=== PATIENT | female | born 1940 | race Caucasian/White ===

== ENCOUNTER 2016-11-28 12:46 | Inpatient (IN) | payer OTHER ==
[2016-11-28 13:09] VITALS: BMI 23.9
--- NOTE | 2016-11-28 13:23 | PDOC ---
History of Present Illness - General Chief Complaint: Injury Stated Complaint: ANKLE INJURY Time Seen by Provider: 11/28/16 13:22 History Source: Patient Exam Limitations: No Limitations - History of Present Illness Initial Comments: 11/28/16 13:35 76y F hx of htn, on asa presents s/p mechanical slip and fall. The pt was walking down and slipped on ice, she hit her head but w/o and LOC and denies any headache, vision changes, numbness/tingling weakness of the extermities, neck pain, back pain. Pt complaining of pain to the L ankle. denies any tingling Past History - Past Medical History Allergies/Adverse Reactions: Allergies Allergy/AdvReac Type Severity Reaction Status Date / Time No Known Allergies Allergy Verified 11/28/16 13:07 Home Medications: Ambulatory Orders Aspirin [ASA -] 81 mg PO DAILY 11/28/16 HTN: Yes - Immunization History Immunization Up to Date: Yes - Psycho/Social/Smoking Cessation Hx Suicidal Ideation: No Smoking History: Current every day smoker Number of Cigarettes Smoked Daily: 20 Information on smoking cessation initiated: No Hx Alcohol Use: No Drug/Substance Use Hx: No Review of Systems - Review of Systems Able to Perform ROS?: Yes Comments:: 11/28/16 13:39 Constitutional - no reported Fever, Chills, weakness, HEENT: no reported vision changes, sore throat Respiratory: no reported cough, sob, hemoptysis Cardiac: no reported chest pain, palpitations, light headedness, leg swelling Abd/GI: no reported abd pain, nausea, vomiting, blood per rectum, melena, diarrhea : no reported dysuria, frequency, discharge Musculskelatal - +ankle pain no reported back pain, joint swelling skin - no reported bruising, erythema, rash neurological: no reported headache, numbness, focal weakness, tingling, ataxia, weakness hematologic: no reported anemia, easy bruising, easy bleeding *Physical Exam - Vital Signs Last Vital Signs Temp Pulse Resp BP Pulse Ox 98.7 F 76 16 141/71 96 11/28/16 13:05 11/28/16 13:05 11/28/16 13:05 11/28/16 13:05 11/28/16 13:05 - Physical Exam Comments: 11/28/16 13:39 GENERAL: The patient is awake, alert, and fully oriented, Nontoxic - in no acute distress. HEAD: Normocephalic, atraumatic. EYES: extraocular movements intact, sclera anicteric, conjunctiva clear. ENT: Normal voice, Moist mucous membranes. NECK: Normal range of motion, supple LUNGS: Breath sounds equal, clear to auscultation bilaterally. No wheezes, no rhonchi, no rales. HEART: Regular rate and rhythm, normal S1 and S2 without murmur, rub or gallop. ABDOMEN: Soft, nontender, normoactive bowel sounds. No guarding, no rebound. . No CVA tenderness EXTREMITIES: Normal range of motion, no edema. No clubbing or cyanosis. No cords, erythema, or tenderness. NEUROLOGICAL: No facial assymetry, Normal speech, PSYCH: Normal mood, normal affect. SKIN: Warm, Dry, normal turgor, Back: No midline tenderness to the cervical, thoracic or lumbar spine Musculoskelatal: FROM of b/l shoulders, elbows, wrist. FROM of hips, knees,- No signs of ecchymosis, erythema, or crepitus noted on palpation extremities, chest wall, clavicals, ribs, back. +tenderness of medial aspect of L ankle, + external rotation of L ankle iwht significant defomrity/ecchymosis Procedures - Consent Consent obtained: Verbal - Splinting Splint Location: Left: Ankle Pre-Proc Neuro Vasc Exam: normal Hand-Made Type: orthoglass Splint Type: Yes: Sugar Tong (u/stirrup splint) Post-Proc Neuro Vasc Exam: normal Jensen Bandage: yes, 4" Good repositioning: Yes Heart Score/ECG Review - ECG Impressions Comment:: 11/28/16 20:31 Twelve-lead EKG was performed and reviewed by me. There is normal sinus rhythm with a normal rate. Rate of 68 The axis is normal. The intervals are normal. Abnormal R wave progression Q waves in the inferior leads No acute ST changes suggestive of ischemia ED Treatment Course - LABORATORY CBC & Chemistry Diagram: 11/28/16 14:41 11/28/16 14:41 - RADIOLOGY Radiology Studies Ordered: Category Date Time Status ANKLE & FOOT-LEFT* [RAD] Stat Radiology 11/28/16 13:23 Ordered Medical Decision Making - Medical Decision Making 11/28/16 15:25 76y presents s/p mechanical fall presents with ankle pain, +head injury without any LOC pt with deformend ankle without too much swelling, n/v intact +trimal fx on xray case dw dr. tom pt placed in a splint will consider exfix vs. reduction will place in observation status. 11/28/16 17:46 plan for OR at 10:[address] in observation status PMD dr. wilson - will notify dr. Belle 11/28/16 20:[address] belle agree with observation status stable for med surg Case discussed in detail with admitting physician including history, physical exam and ancillary studies. Admitting physician has assumed care for the patient, will follow all pending diagnostics and will complete the evaluation and treatment. 11/28/16 20:33 *DC/Admit/Observation/Transfer Diagnosis at time of Disposition: Fracture of distal end of tibia with fibula Qualifiers: Encounter type: initial encounter Fracture type: closed Laterality: left Qualified Code(s): S82.302A - Unspecified fracture of lower end of left tibia, initial encounter for closed fracture - Discharge Dispostion Condition at time of disposition: Guarded Admit: Yes
[2016-11-28] MEDS ORDERED: morphine CARPU-JECT 2 MG/1 ML DISP.SYRIN IVPUSH ONE (13:36)
[2016-11-28] MEDS ORDERED: morphine CARPU-JECT 2 MG/1 ML DISP.SYRIN ONE (14:32)
[2016-11-28 14:48] LABS: BASOPHIL 1.3 % (0-2.0); EOSINOPHIL 1.6 % (0-4.5); MCH 30.2 pg (25.7-33.7); MCHC 33.9 g/dl (32.0-36.0); MEAN CELL VOLUME 89.2 fl (80-96); MEAN PLT VOLUME 9.4 fl (7.5-11.1); NEUTROPHILS 68.8 % (42.8-82.8); PLATELET COUNT 172 K/MM3 (134-434); WHITE BLOOD COUNT 8.7 K/mm3 (4.0-10.0)
[2016-11-28 15:06] LABS: INR 0.99 (0.82-1.09); PROTHROMBIN TIME (PATIENT) 10.9 SEC (9.98-11.88)
[2016-11-28 15:11] LABS: ALBUMIN 3.5 g/dl (3.4-5.0); ALK PHOS 73 U/L (45-117); ANION GAP 10 (8-16); BILIRUBIN,TOTAL 0.6 mg/dL (0.2-1.0); CALCIUM 9.1 mg/dL (8.5-10.1); CO2 27 mmol/L (21-32); CREATININE 0.9 mg/dL (0.55-1.02); GLUCOSE,RANDOM 107 mg/dL (74-106); SGOT/AST 8 U/L (15-37); SGPT/ALT 15 U/L (12-78); TOT PROT 6.4 g/dl (6.4-8.2)
[2016-11-28] MEDS ORDERED: ONDANSETRON 4 MG/2 ML VIAL ONE (19:11)
[2016-11-28] MEDS ORDERED: ceFAZolin SODIUM 1 GM VIAL IVPB ONE (19:20)
[2016-11-28] MEDS ORDERED: ACETAMINOPHEN 325 MG TABLET (FP) PO PRN (19:51)
[2016-11-28] MEDS ORDERED: ACETAMINOPHEN WITH CODEINE 300MG/30MG TABLET PO PRN (19:52)
[2016-11-28] MEDS ORDERED: ceFAZolin SODIUM 1 GM VIAL ONE (19:59)
--- NOTE | 2016-11-28 19:59 | OP ---
Operative Note - Note: Operative Date: 11/28/16 Pre-Operative Diagnosis: LEFT DISTAL TIBIA AND FIBULA FX Operation: EXTERNAL FIXATION Surgeon: Alfredo Hernandez I Armament Aircraft Mechanic: Chay Carr Anesthesia: Spinal
[2016-11-28] MEDS ORDERED: ONDANSETRON 4 MG/2 ML VIAL IVPUSH PRN (20:11)
--- NOTE | 2016-11-28 21:17 | CONS ---
DATE OF CONSULTATION: 11/28/2016 CHIEF COMPLAINT: Left ankle injury. HISTORY OF PRESENT ILLNESS: The patient is a 76-year-old female who complains of a mechanical slip and fall. She was walking down stairs and slipped on the ice. She hit her head, but did not have loss of consciousness. She denied any head conditions. She complained of left ankle pain and I was consulted to evaluate the left ankle. Patient denies numbness, tingling, or other complaints. PAST MEDICAL HISTORY: Hypertension. MEDICATIONS: Aspirin. ALLERGIES: No known drug allergies. SOCIAL HISTORY: She has a positive smoking history, but no alcohol abuse. REVIEW OF SYSTEMS: Negative for all systems, other than ankle pain. PHYSICAL EXAMINATION: General: Patient is alert and oriented x3 and in no acute distress. She is not ambulatory at the time due to her injury. Vital signs: Stable. She is afebrile. HEENT: Head is atraumatic. Neck: Nontender. Spine: Nontender. Lungs: Clear to auscultation with normal symmetrical excursion. Heart: Regular rate and rhythm. Abdomen: Soft and nontender. Extremities: The right lower extremity and bilateral upper extremities are atraumatic. The left lower extremity has mild to moderate swelling and mild deformity to the ankle. She has intact sensation, 1+ pulse. Brisk capillary refill. Tenderness throughout the ankle. IMAGING: AP, lateral, and oblique of the left ankle shows a displaced comminuted fracture dislocation of the ankle. IMPRESSION: Left ankle displaced comminuted intraarticular fracture. PLAN: I have had a long discussion with the patient regarding the findings and treatment options. We have decided to proceed with external fixation for now and possibility of open reduction internal fixation in the future. Risks, benefits, alternatives were discussed with the patient at length. She understands that this is a very bad fracture and that even with optimal surgical fixation, she is unlikely to have a normal ankle. Potential risks including but not limited to infection, reflex complex regional pain syndrome, arthritis, failure of the fracture to heal in a proper position or to heal at all were all discussed, even the potential risk of morbidity and mortality were discussed. She desired to proceed. Proper informed consent was obtained. MIKIE MILLER M.D. [id number]
[2016-11-28] MEDS: DOCUSATE SODIUM 100 MG CAPSULE (FP) PO SCH (22:44)
[2016-11-28] MEDS: oxyCODONE HCL 5 MG TABLET PO PRN (22:44)
[2016-11-28] MEDS: CALCIUM 500MG/VIT-D 200 UNITS COMBO TABLET (FP) PO SCH (22:44)
[2016-11-28] MEDS: LACTATED RINGERS SOLUTION 1,000 ML IV SCH (23:18)
[2016-11-29] MEDS: CEFAZOLIN (PRE-DOCKED) 50 ML IVPB SCH ×3 (01:57→17:34)
[2016-11-29] MEDS: oxyCODONE HCL 5 MG TABLET PO PRN ×4 (06:00→21:33)
[2016-11-29] MEDS: DOCUSATE SODIUM 100 MG CAPSULE (FP) PO SCH ×3 (06:01→21:28)
[2016-11-29] MEDS: LACTATED RINGERS SOLUTION 1,000 ML IV SCH ×2 (07:45→21:26)
--- NOTE | 2016-11-29 09:07 | PN ---
Progress Note (short form) - Note Progress Note: Post op day#1.S/P ORIF of left ankle with external fixator under spinal anesthesia uneventful.Patient stable.No any anesthesia related problem.Patient dc from the anesthesia care.
[2016-11-29] MEDS: ASPIRIN 81 MG CHEWABLE TABLETS PO SCH (09:27)
[2016-11-29] MEDS: HEPARIN NA (PORCINE) 5,000 UNITS/ML 1ML VIAL SQ SCH ×2 (09:27→21:26)
[2016-11-29] MEDS: CALCIUM 500MG/VIT-D 200 UNITS COMBO TABLET (FP) PO SCH ×2 (09:27→21:26)
[2016-11-29] MEDS ORDERED: ASPIRIN 325 MG ENTERIC COATED TABLET (FP) PO SCH ×2 (10:00→22:00)
--- NOTE | 2016-11-29 12:28 | EKG ---
Test Reason : Blood Pressure : / mmHG Vent. Rate : 068 BPM Atrial Rate : 068 BPM P-R Int : 150 ms QRS Dur : 090 ms QT Int : 414 ms P-R-T Axes : 072 032 057 degrees QTc Int : 440 ms NORMAL SINUS RHYTHM POSSIBLE INFERIOR INFARCT , AGE UNDETERMINED ANTERIOR INFARCT , AGE UNDETERMINED ABNORMAL ECG WHEN COMPARED WITH ECG OF 22-MAY-1998 15:00, ANTERIOR INFARCT IS NOW PRESENT BORDERLINE CRITERIA FOR INFERIOR INFARCT ARE NOW PRESENT Confirmed by EDOUARD GATICA MD ([id number]) on 11/29/2016 12:28:29 PM Referred By: Confirmed By:EDOUARD GATICA MD
[2016-11-29] MEDS: LOSARTAN POTASSIUM 50 MG TABLET (FP) PO SCH (13:31)
[2016-11-29] MEDS: DULoxetine HCL 30 MG CAPSULE.DR (FP) PO SCH ×2 (13:33→21:26)
--- NOTE | 2016-11-29 14:47 | PN ---
Progress Note, Physician History of Present Illness: She feels well. Her pain is well controlled. No new complaints. - Current Medication List Current Medications: Active Medications Acetaminophen (Tylenol -) 650 mg PO Q6H PRN PRN Reason: PAIN Acetaminophen/Codeine Phosphate (Tylenol # 3 -) 1 tab PO Q4H PRN PRN Reason: FEVER OR PAIN Aspirin (Asa -) 81 mg PO DAILY [facility] Last Admin: 11/29/16 09:27 Dose: 81 mg Calcium Carbonate/Cholecalciferol (Os-Ronni 500+D -) 1 tab PO BID [facility] Last Admin: 11/29/16 09:27 Dose: 1 tab Docusate Sodium (Colace -) 100 mg PO TID [facility] Last Admin: 11/29/16 13:33 Dose: Not Given Duloxetine HCl (Cymbalta -) 30 mg PO BID [facility] Last Admin: 11/29/16 13:33 Dose: 30 mg Heparin Sodium (Porcine) (Heparin -) 5,000 unit SQ BID [facility] Last Admin: 11/29/16 09:27 Dose: 5,000 unit Cefazolin Sodium (Ancef 1gm Ivpb (Pre-Docked)) 50 mls @ 100 mls/hr IVPB Q8H-IV [facility] Stop: 11/30/16 00:59 Last Admin: 11/29/16 09:27 Dose: 100 mls/hr Lactated Ringer's (Lactated Ringers Solution) 1,000 mls @ 125 mls/hr IV ASDIR [facility] Last Admin: 11/29/16 07:45 Dose: 125 mls/hr Losartan Potassium (Cozaar -) 100 mg PO DAILY [facility] Last Admin: 11/29/16 13:31 Dose: 100 mg Oxycodone HCl (Roxicodone -) 5 mg PO Q4H PRN PRN Reason: PAIN Last Admin: 11/29/16 11:01 Dose: 5 mg - Objective Vital Signs: Vital Signs Temperature 98.8 F 11/29/16 07:54 Pulse Rate 96 H 11/29/16 07:54 Respiratory Rate 20 11/29/16 07:54 Blood Pressure 160/82 11/29/16 07:54 O2 Sat by Pulse Oximetry (%) 97 11/29/16 09:00 Constitutional: Yes: Well Nourished, No Distress HENT: Yes: Atraumatic, Normocephalic Extremities: Yes: Other (LLE: Exfix in place. Dressing CDI. Calf nontender. NVID. Compartments soft.) Labs: INR, PTT INR 0.99 (0.82-1.09) 11/28/16 14:41 Assessment/Plan #1 POD #1 s/p Left ankle Closed reduction and External Fixation. -Elevate LLE -NWB LLE -F/u with Dr. Pritchard in approx 1 week -Pain control -Discharge planning
--- NOTE | 2016-11-29 16:06 | HP ---
Admitting History and Physical - Past Medical History ...: No - Smoking History Smoking history: Current every day smoker Have you smoked in the past 12 months: Yes Aproximately how many cigarettes per day: 20 - Alcohol/Substance Use Hx Alcohol Use: No Home Medications - Allergies Allergies/Adverse Reactions: Allergies Allergy/AdvReac Type Severity Reaction Status Date / Time No Known Allergies Allergy Verified 11/28/16 13:07 - Home Medications Home Medications: Ambulatory Orders Aspirin [ASA -] 81 mg PO DAILY 11/28/16 Physical Examination Vital Signs: Vital Signs Temperature 97.8 F 11/29/16 15:39 Pulse Rate 89 11/29/16 15:39 Respiratory Rate 18 11/29/16 15:39 Blood Pressure 151/64 11/29/16 15:39 O2 Sat by Pulse Oximetry (%) 97 11/29/16 09:00
--- NOTE | 2016-11-29 18:44 | OP ---
OPERATIVE NOTE DATE OF OPERATION: 11/28/2016 OPERATIVE PROCEDURE: Closed reduction and external fixation of left comminuted intraarticular displaced distal tibia and fibula fracture. PREOPERATIVE DIAGNOSIS: Left comminuted intraarticular displaced ankle fracture. POSTOPERATIVE DIAGNOSIS: Left comminuted intraarticular displaced ankle fracture. SURGEON: Mikie Hernandez MD SNOW REMOVER: KALE Gonzalez ANESTHESIA: Spinal, COMPLICAITONS: None. ESTIMATED BLOOD LOSS: Minimal. INDICATION FOR PROCEDURE: The patient is a 76-year-old female with the above finding indicated for operative treatment. Risks, benefits and alternatives were discussed with the patient at length. Proper informed consent was obtained. PROCEDURE: After proper identification of the patient and the correct operative site, the patient was brought to the operating room and placed supine with all prominences well padded. Intravenous antibiotic was given. A time-out procedure was performed. Spinal anesthesia had been given and was adequate for procedure. The left lower extremity was prepped and draped in the usual sterile fashion. Using live fluoroscopy, the proper position and fractional fixation were visualized. Two small incisions were made over the proximal aspect of the tibia. Through this, a Ornelas external fixator was assembled. This was done with two pins placed proximally in the anteromedial position in a bicortical fashion. A third pin was placed through the calcaneus. All pins were placed with skin incision and then blunt dissection down to the bone. Care was taken to protect neurological and tendinous structures. Once the pins were placed, the external fixator frame was built around this, and then the fractures were reduced in a satisfactory position, and the frame was tightened. Final x-rays were taken and confirmed near-anatomic reduction with excellent alignment of the plafond. Sterile dressings were applied to all pin sites. The patient was brought to the recovery room in stable condition. She tolerated the procedure well. The plan will be to follow the patient with x-rays, check on her skin condition and determine at a later date whether internal fixation will be necessary. Chay Carr, the admin assistant, was integral throughout this procedure and the procedure could not have been performed without a skilled operative admin assistant. MIKIE HERNANDEZ M.D. [id number]
[2016-11-30] MEDS: DOCUSATE SODIUM 100 MG CAPSULE (FP) PO SCH ×3 (05:12→21:12)
[2016-11-30] MEDS: oxyCODONE HCL 5 MG TABLET PO PRN ×2 (05:28→21:13)
[2016-11-30 07:48] LABS: BASOPHIL 0.8 % (0-2.0); EOSINOPHIL 0.3 % (0-4.5); MCH 30.5 pg (25.7-33.7); MCHC 34.8 g/dl (32.0-36.0); MEAN CELL VOLUME 87.6 fl (80-96); MEAN PLT VOLUME 9.4 fl (7.5-11.1); NEUTROPHILS 72.6 % (42.8-82.8); PLATELET COUNT 129 K/MM3 (134-434); RDW 13.5 % (11.6-15.6); WHITE BLOOD COUNT 9.8 K/mm3 (4.0-10.0)
[2016-11-30 08:13] LABS: ALBUMIN 2.7 g/dl (3.4-5.0); ANION GAP 11 (8-16); CALCIUM 8.7 mg/dL (8.5-10.1); CO2 26 mmol/L (21-32); GLUCOSE,RANDOM 104 mg/dL (74-106)
[2016-11-30 08:16] LABS: ALK PHOS 59 U/L (45-117); BILIRUBIN,TOTAL 1.4 mg/dL (0.2-1.0); CREATININE 0.6 mg/dL (0.55-1.02); SGOT/AST 10 U/L (15-37); SGPT/ALT 10 U/L (12-78); TOT PROT 5.2 g/dl (6.4-8.2)
[2016-11-30] MEDS: HEPARIN NA (PORCINE) 5,000 UNITS/ML 1ML VIAL SQ SCH ×2 (09:45→21:13)
[2016-11-30] MEDS: CALCIUM 500MG/VIT-D 200 UNITS COMBO TABLET (FP) PO SCH ×2 (09:45→21:12)
[2016-11-30] MEDS: LOSARTAN POTASSIUM 50 MG TABLET (FP) PO SCH (09:45)
[2016-11-30] MEDS: DULoxetine HCL 30 MG CAPSULE.DR (FP) PO SCH ×2 (09:46→21:12)
[2016-11-30] MEDS: ASPIRIN 81 MG CHEWABLE TABLETS PO SCH (09:46)
[2016-11-30] MEDS ORDERED: POTASSIUM CHLORIDE TABS 20 MEQ TABLET.ER (FP) PO ONE (13:30)
--- NOTE | 2016-11-30 16:55 | PN ---
Progress Note (short form) - Note Progress Note: Subjective: Patient feels well. Minimal pain. Comfortable. Having some numbness to the plantar aspect of the foot. Denies CP, SOB, N/V/D, abdominal pain, calf pain, fevers/chills. Objective: Vital Signs Temperature 99.0 F 11/30/16 14:12 Pulse Rate 89 11/30/16 14:12 Respiratory Rate 18 11/30/16 10:00 Blood Pressure 156/68 11/30/16 14:12 O2 Sat by Pulse Oximetry (%) 95 11/30/16 09:00 VSS. Afebrile. NAD. L ankle exam: Ex-fix in place No erythema/discharge noted at insertion sites. Dressings C/D Full ROM of the toes NVID. CBC, BMP 11/30/16 06:30 11/30/16 06:30 A/P: POD #2 s/p Left ankle Closed reduction and External Fixation -Elevate LLE -NWB LLE -Pain control -Order CT of the ankle -Will f/u on results
--- NOTE | 2016-11-30 19:36 | PN ---
Progress Note, Physician - Current Medication List Current Medications: Active Medications Acetaminophen (Tylenol -) 650 mg PO Q6H PRN PRN Reason: PAIN Acetaminophen/Codeine Phosphate (Tylenol # 3 -) 1 tab PO Q4H PRN PRN Reason: FEVER OR PAIN Aspirin (Asa -) 81 mg PO DAILY [facility] Last Admin: 11/30/16 09:46 Dose: 81 mg Calcium Carbonate/Cholecalciferol (Os-Ronni 500+D -) 1 tab PO BID [facility] Last Admin: 11/30/16 09:45 Dose: 1 tab Docusate Sodium (Colace -) 100 mg PO TID [facility] Last Admin: 11/30/16 14:21 Dose: 100 mg Duloxetine HCl (Cymbalta -) 30 mg PO BID [facility] Last Admin: 11/30/16 09:46 Dose: 30 mg Heparin Sodium (Porcine) (Heparin -) 5,000 unit SQ BID [facility] Last Admin: 11/30/16 09:45 Dose: 5,000 unit Losartan Potassium (Cozaar -) 100 mg PO DAILY [facility] Last Admin: 11/30/16 09:45 Dose: 100 mg Oxycodone HCl (Roxicodone -) 5 mg PO Q4H PRN PRN Reason: PAIN Last Admin: 11/30/16 05:28 Dose: 5 mg - Objective Vital Signs: Vital Signs Temperature 99.0 F 11/30/16 14:12 Pulse Rate 89 11/30/16 14:12 Respiratory Rate 18 11/30/16 10:00 Blood Pressure 156/68 11/30/16 14:12 O2 Sat by Pulse Oximetry (%) 95 11/30/16 09:00 Labs: CBC, BMP 11/30/16 06:30 11/30/16 06:30 INR, PTT INR 0.99 (0.82-1.09) 11/28/16 14:41
[2016-12-01] MEDS: DOCUSATE SODIUM 100 MG CAPSULE (FP) PO SCH ×3 (05:50→21:58)
[2016-12-01] MEDS ORDERED: ALBUTEROL SO4 2.5/IPRATROPIUM 0.5 INH SOL 3 ML VIAL.NEB. NEB ONE (09:52)
[2016-12-01] MEDS: DULoxetine HCL 30 MG CAPSULE.DR (FP) PO SCH ×2 (09:53→21:57)
[2016-12-01] MEDS: ASPIRIN 81 MG CHEWABLE TABLETS PO SCH (09:53)
[2016-12-01] MEDS: CALCIUM 500MG/VIT-D 200 UNITS COMBO TABLET (FP) PO SCH ×2 (09:53→21:58)
[2016-12-01] MEDS: HEPARIN NA (PORCINE) 5,000 UNITS/ML 1ML VIAL SQ SCH ×2 (09:54→21:55)
[2016-12-01] MEDS: LOSARTAN POTASSIUM 50 MG TABLET (FP) PO SCH (09:54)
[2016-12-01] MEDS ORDERED: ALBUTEROL SO4 2.5/IPRATROPIUM 0.5 INH SOL 3 ML VIAL.NEB. NEB PRN ×2 (10:00→11:24)
--- NOTE | 2016-12-01 11:17 | PN ---
Progress Note (short form) - Note Progress Note: PULMONARY CONSULTATION DICTATED 12/01/16 IMP DYSPNEA LIKELY COPD,CANNOT EXCLUDE PULMONARY EMBOLISM,POST-OP ATELECTASIS S/P ANKLE FX S/P CLOSED REDUCTION EXTERNAL FIXATION LEFT TIB-FIB HTN PLAN O2 INHALED BRONCHODILATORS CHEST CTA INCENTIVE SPIROMETRY DVT PROPHYLAXIS DR BROWN Problem List - Problems (1) Fracture of distal end of tibia with fibula Code(s): S82.309A - UNSP FRACTURE OF LOWER END OF UNSP TIBIA, INIT FOR CLOS FX S82.839A - OTH FRACTURE OF UPPER AND LOWER END OF UNSP FIBULA, INIT Qualifiers : Encounter type: initial encounter Fracture type: closed Laterality : left Qualified Code(s): S82.302A - Unspecified fracture of lower end of left tibia, initial encounter for closed fracture (2) Dyspnea and respiratory abnormalities Code(s): R06.00 - DYSPNEA, UNSPECIFIED R06.89 - OTHER ABNORMALITIES OF BREATHING (3) Status post closed reduction with internal fixation Code(s): Z98.89 - OTHER SPECIFIED POSTPROCEDURAL STATES * DO NOT USE *
--- NOTE | 2016-12-01 13:11 | HOSP ---
Physical Examination Vital Signs: Vital Signs Temperature 97.8 F 12/01/16 08:00 Pulse Rate 81 12/01/16 08:00 Respiratory Rate 20 12/01/16 08:00 Blood Pressure 162/82 12/01/16 08:00 O2 Sat by Pulse Oximetry (%) 97 11/30/16 20:37 Labs: CBC, BMP 11/30/16 06:30 11/30/16 06:30 Hospitalist Encounter Assessment: Called to evaluate patient after IV infiltrated in CTA. The patient denies any pain. On exam, she has a 3cm x 3cm area of soft swelling without erythema or discoloration. The patient did receive a full contrast load and the infiltration is likely secondary to saline alone. Plan: -Warm compress -Elevation -Monitor Please re-call if needed. [phone]
--- NOTE | 2016-12-01 14:26 | PN ---
Progress Note, Physician History of Present Illness: Feels well. pain minimal. no new complaints. - Current Medication List Current Medications: Active Medications Acetaminophen (Tylenol -) 650 mg PO Q6H PRN PRN Reason: PAIN Acetaminophen/Codeine Phosphate (Tylenol # 3 -) 1 tab PO Q4H PRN PRN Reason: FEVER OR PAIN Albuterol/Ipratropium (Duoneb -) 1 amp NEB Q4H PRN PRN Reason: SHORTNESS OF BREATH Last Admin: 12/01/16 10:27 Dose: 1 amp Aspirin (Asa -) 81 mg PO DAILY [facility] Last Admin: 12/01/16 09:53 Dose: 81 mg Calcium Carbonate/Cholecalciferol (Os-Ronni 500+D -) 1 tab PO BID [facility] Last Admin: 12/01/16 09:53 Dose: 1 tab Docusate Sodium (Colace -) 100 mg PO TID [facility] Last Admin: 12/01/16 13:28 Dose: 100 mg Duloxetine HCl (Cymbalta -) 30 mg PO BID [facility] Last Admin: 12/01/16 09:53 Dose: 30 mg Heparin Sodium (Porcine) (Heparin -) 5,000 unit SQ BID [facility] Last Admin: 12/01/16 09:54 Dose: 5,000 unit Losartan Potassium (Cozaar -) 100 mg PO DAILY [facility] Last Admin: 12/01/16 09:54 Dose: 100 mg Oxycodone HCl (Roxicodone -) 5 mg PO Q4H PRN PRN Reason: PAIN Last Admin: 11/30/16 21:13 Dose: 5 mg - Objective Vital Signs: Vital Signs Temperature 97.8 F 12/01/16 08:00 Pulse Rate 84 12/01/16 10:24 Respiratory Rate 20 12/01/16 08:00 Blood Pressure 162/82 12/01/16 08:00 O2 Sat by Pulse Oximetry (%) 91 L 12/01/16 10:24 Constitutional: Yes: Well Nourished, No Distress HENT: Yes: Atraumatic, Normocephalic Extremities: Yes: Other (Dressing saturated on medial side. Dressing changed. No sign of infection. No calf tenderness. NVID.) Labs: CBC, BMP 11/30/16 06:30 11/30/16 06:30 INR, PTT INR 0.99 (0.82-1.09) 11/28/16 14:41 <Chay Carr W - Last Filed: 12/01/16 14:24> - Current Medication List Current Medications: Active Medications Acetaminophen (Tylenol -) 650 mg PO Q6H PRN PRN Reason: PAIN Albuterol/Ipratropium (Duoneb -) 1 amp NEB Q4H PRN PRN Reason: SHORTNESS OF BREATH Last Admin: 12/01/16 10:27 Dose: 1 amp Aspirin (Asa -) 81 mg PO DAILY [facility] Last Admin: 12/01/16 09:53 Dose: 81 mg Calcium Carbonate/Cholecalciferol (Os-Ronni 500+D -) 1 tab PO BID [facility] Last Admin: 12/01/16 09:53 Dose: 1 tab Docusate Sodium (Colace -) 100 mg PO TID [facility] Last Admin: 12/01/16 13:28 Dose: 100 mg Duloxetine HCl (Cymbalta -) 30 mg PO BID [facility] Last Admin: 12/01/16 09:53 Dose: 30 mg Heparin Sodium (Porcine) (Heparin -) 5,000 unit SQ BID [facility] Last Admin: 12/01/16 09:54 Dose: 5,000 unit Losartan Potassium (Cozaar -) 100 mg PO DAILY [facility] Last Admin: 12/01/16 09:54 Dose: 100 mg - Objective Vital Signs: Vital Signs Temperature 98.6 F 12/01/16 18:30 Pulse Rate 84 12/01/16 18:30 Respiratory Rate 18 12/01/16 18:30 Blood Pressure 164/86 12/01/16 18:30 O2 Sat by Pulse Oximetry (%) 91 L 12/01/16 10:24 Labs: CBC, BMP 11/30/16 06:30 11/30/16 06:30 INR, PTT INR 0.99 (0.82-1.09) 11/28/16 14:41 <Chiquita Belle - Last Filed: 12/01/16 20:26> Assessment/Plan #1 POD #3 s/p EX FIX L ankle -F/u with Dr. Pritchard next week. -Pain control -DVT prophalxis -Non weight bearing LLE <Chay Carr W - Last Filed: 12/01/16 14:24>
--- NOTE | 2016-12-01 16:27 | CONS ---
DATE OF CONSULTATION: 12/01/2016 REFERRING PHYSICIAN: Chiquita Belle MD HISTORY OF PRESENT ILLNESS: The patient is a 76-year-old white female with past medical history of hypertension, longstanding history tobacco use approximately 1-2 packs per day since age 14, currently still smoking, admitted to [facility] on November 28, status post mechanical slip and fall, sustaining a left ankle fracture. Patient denied any complaints of loss of consciousness, chest pain or palpitations prior to admission. On admission, the patient was evaluated by Orthopedics. She underwent external fixation, ORIF and external fixator on November 28. Patient tolerated the procedure well without complications. Apparently, yesterday the patient started developing increasing shortness of breath and decreased O2 saturations. She denies any chest pain, nausea, vomiting or diaphoresis. She denied any fevers or chills. She denies a history of COPD or asthma in the past. She denies any chest pains, or palpitations. She denies a cough, which is nonproductive. She denies any hemoptysis. PAST MEDICAL HISTORY: Includes hypertension, history of tobacco use many years. REVIEW OF SYSTEMS: No orthopnea, positive mild dyspnea. No chest pain, no palpitations. Positive cough. No fevers, no chills. MEDICATIONS: Current medications include: 1. Tylenol. 2. Cozaar. 3. Cymbalta. 4. DuoNeb. 5. Colace. 6. Aspirin. 7. Tylenol. 8. Roxicodone. PHYSICAL EXAMINATION: General: The patient is an elderly white female awake, alert, in no acute distress. Vitals: She is currently afebrile. Blood pressure is 162/82, respiratory rate if 20, O2 saturation is 97% on 2 L. HEENT: Normocephalic, atraumatic. Neck: Supple. Heart: Regular with S1, S2. Chest: Symmetric breath sounds bilaterally. Abdomen: Soft, bowel sounds positive. Extremities: No cyanosis, edema. Left ankle is bandaged. X-fix in place. Nontender, no edema. LABORATORY STUDIES: WBC is 9.8, hemoglobin 12.6, hematocrit 36.3 with platelet count 129,000. There are 72 polys, 14 lymphocytes and 12 monocytes. INR is 0.99. Electrolytes: Potassium 3.1, BUN 13, creatinine 0.6. Chest x-ray not performed. IMPRESSION: 1. Dyspnea, postoperatively. 2. Postoperative atelectasis. 3. Probably underlying chronic obstructive pulmonary disease secondary to long history of tobacco use. 4. Cannot exclude possible pulmonary emboli. He is at increased risk, secondary to recent surgery. 5. Status post left ankle fracture and external fixation and FX placement, status post open reduction internal fixation external fixation left ankle. Status post closed reduction and external fixation of the left comminuted intraarticular displaced tibial and fibula fracture. PLAN: 1. Inhaled bronchodilators. 2. Supplemental O2. 3. Incentive spirometer. 4. CTA chest. 5. DVT prophylaxis. Further recommendations to follow pending the results of the chest CTA. DESTINY BROWN M.D. [id number] cc: Chiquita Belle MD MTDD
--- NOTE | 2016-12-01 20:26 | PN ---
Progress Note, Physician - Current Medication List Current Medications: Active Medications Acetaminophen (Tylenol -) 650 mg PO Q6H PRN PRN Reason: PAIN Albuterol/Ipratropium (Duoneb -) 1 amp NEB Q4H PRN PRN Reason: SHORTNESS OF BREATH Last Admin: 12/01/16 10:27 Dose: 1 amp Aspirin (Asa -) 81 mg PO DAILY [facility] Last Admin: 12/01/16 09:53 Dose: 81 mg Calcium Carbonate/Cholecalciferol (Os-Ronni 500+D -) 1 tab PO BID [facility] Last Admin: 12/01/16 09:53 Dose: 1 tab Docusate Sodium (Colace -) 100 mg PO TID [facility] Last Admin: 12/01/16 13:28 Dose: 100 mg Duloxetine HCl (Cymbalta -) 30 mg PO BID [facility] Last Admin: 12/01/16 09:53 Dose: 30 mg Heparin Sodium (Porcine) (Heparin -) 5,000 unit SQ BID [facility] Last Admin: 12/01/16 09:54 Dose: 5,000 unit Losartan Potassium (Cozaar -) 100 mg PO DAILY [facility] Last Admin: 12/01/16 09:54 Dose: 100 mg - Objective Vital Signs: Vital Signs Temperature 98.6 F 12/01/16 18:30 Pulse Rate 84 12/01/16 18:30 Respiratory Rate 18 12/01/16 18:30 Blood Pressure 164/86 12/01/16 18:30 O2 Sat by Pulse Oximetry (%) 91 L 12/01/16 10:24 Labs: CBC, BMP 11/30/16 06:30 11/30/16 06:30 INR, PTT INR 0.99 (0.82-1.09) 11/28/16 14:41
[2016-12-02 05:21] VITALS: TEMP 98
[2016-12-02] MEDS: DOCUSATE SODIUM 100 MG CAPSULE (FP) PO SCH ×2 (06:08→13:39)
[2016-12-02] MEDS: LOSARTAN POTASSIUM 50 MG TABLET (FP) PO SCH (09:08)
[2016-12-02] MEDS: ASPIRIN 81 MG CHEWABLE TABLETS PO SCH (09:09)
[2016-12-02] MEDS: DULoxetine HCL 30 MG CAPSULE.DR (FP) PO SCH (09:09)
[2016-12-02] MEDS: HEPARIN NA (PORCINE) 5,000 UNITS/ML 1ML VIAL SQ SCH (09:09)
[2016-12-02] MEDS: CALCIUM 500MG/VIT-D 200 UNITS COMBO TABLET (FP) PO SCH (09:09)
[2016-12-02 12:35] VITALS: BP 156/76; PULSE 96
[2016-12-02] MEDS ORDERED: POLYETHYLENE GLYCOL 3350 119 GM BTL PO ONE (13:30)
--- NOTE | 2016-12-02 14:26 | PN ---
Progress Note (short form) - Note Progress Note: PULMONARY VSS/AFEBRILE ANICTERIC DISTANT BREATH SOUNDS S1S2 BS+ S/P LEFT ANKLE SURGERY LABS/MEDS/NOTES/IMAGING/REVIEWED IMP DYSPNEA IMPROVED LIKELY COPD Left lower lobe infiltrate S/P ANKLE FX S/P CLOSED REDUCTION EXTERNAL FIXATION LEFT TIB-FIB HTN PLAN O2 INHALED BRONCHODILATORS INCENTIVE SPIROMETRY DVT PROPHYLAXIS LY LEI MD
[2016-12-02] MEDS ORDERED: ALBUTEROL SO4 2.5/IPRATROPIUM 0.5 INH SOL 3 ML VIAL.NEB. NEB SCH (14:30)
[2016-12-02] MEDS ORDERED: CEFTRIAXONE 50 ML IVPB SCH (14:45)
== END 2016-12-02 17:55 | DRG 563 ==
LOC: JER 12:46 → JERBED 18:03 → J6S 21:15 → OBSVTOIN 11-29 03:18
PROVIDERS: ADMIT Internal Medicine; ATTEND Internal Medicine
PROC: 0QSHXZZ Reposition Left Tibia, External Approach (ICD-10-PCS; 2016-11-28)
PROC: 0QSKXZZ Reposition Left Fibula, External Approach (ICD-10-PCS; principal; 2016-11-28 17:30)
DX: S82.852A Displaced trimalleolar fracture of left lower leg, initial encounter for closed fracture (principal); W00.0XXA Fall on same level due to ice and snow, initial encounter; Y93.89 Activity, other specified; Y92.098 Other place in other non-institutional residence as the place of occurrence of the external cause; I10 Essential (primary) hypertension; J44.9 Chronic obstructive pulmonary disease, unspecified; R06.00 Dyspnea, unspecified
CPT/HCPCS: 36415; 70450-TC; 71275-TC; 72125-TC; 73610-TC-LT; 73630-TC-LT; 73700-TC-RT; 76000-TC; 80053; 85025; 85610; 86850; 86900; 86901; 93005; 93010; 94010; 94640; 94760; 97116-GP; 97162-PG; 99284-25; G0378; J1644

== ENCOUNTER 2016-12-20 11:33 | Day surgery (SDC) | payer OTHER ==
[2016-12-20] MEDS ORDERED: DEXAMETHASONE SOD PHOSPHATE/PF 10 MG/ML SDV ONE (11:38)
[2016-12-20] MEDS ORDERED: ROPIVACAINE HCL 0.5% 30ML VIAL ONE (11:38)
[2016-12-20 12:08] VITALS: BMI 23.8
[2016-12-20] MEDS ORDERED: MIDAZOLAM HCL 2 MG/2 ML SINGLE DOSE VIAL ONE (12:13)
[2016-12-20] MEDS ORDERED: PROPOFOL 20 ML ONE (12:55)
[2016-12-20] MEDS ORDERED: KETAMINE HCL 200 MG/20 ML VIAL ONE (13:07)
[2016-12-20] MEDS ORDERED: HYDROmorphone HCL/PF 1 MG/ML VIAL (FOR PYXIS CHARGING ONLY) ONE (13:36)
[2016-12-20] MEDS ORDERED: ePHEDrine SULFATE 50 MG/1 ML AMPULE ONE (13:43)
[2016-12-20] MEDS ORDERED: ONDANSETRON 4 MG/2 ML VIAL IVPUSH PRN (15:08)
[2016-12-20] MEDS ORDERED: oxyCODONE HCL 5 MG TABLET PO PRN ×2 (15:09)
[2016-12-20 18:13] VITALS: BP 142/83; PULSE 96; TEMP 98.4
--- NOTE | 2016-12-22 00:02 | OP ---
DATE OF OPERATION: 12/20/2016 SURGEON: Aaron Duval MD ANESTHESIOLOGIST: Chay Benito MD ANESTHESIA: Regional anesthetic with LMA general. ANTIBIOTICS: Kefzol was given preoperatively for prophylaxis against infection and a second gram was given at the time of wound closure. PRESSING MACHINE OPERATOR: KALE Kent, whose skilled surgical assistance was necessary for retraction and protection of vital structures, the handling of the precise and delicate surgical instrumentation as well as the overall safe of the procedure. PREOPERATIVE DIAGNOSIS: Displaced bimalleolar ankle fracture dislocation with syndesmotic disruption, status post external fixation. POSTOPERATIVE DIAGNOSIS: Displaced bimalleolar ankle fracture dislocation with syndesmotic disruption, status post external fixation. PROCEDURE: Open reduction and internal fixation of bimalleolar ankle fracture and open reduction and internal fixation of syndesmotic disruption and removal of external fixator. HARDWARE USED: Locking lateral hooked plate from [employer] with proximal nonlocking screws and single cancellous screws distally for fixation of the lateral malleolus fracture. The syndesmosis was repaired with 2 syndesmotic TightRopes from [employer]. The medial malleolus was left alone as this was nondisplaced. ESTIMATED BLOOD LOSS: Minimal. TOURNIQUET: Applied but not used. COMPLICATIONS: None. INDICATIONS: The patient is a 76-year-old female status post a severe injury to her ankle where she sustained an ankle fracture dislocation. She was treated by my associate, Dr. Hernandez, with an external fixator. She had been discharged to a [facility] and had been seen in the office with slight persistent swelling. External fixator pin sites looked well. We had discussed treatment options including allowing the fracture to heal with the external fixator versus internal fixation and restoring the mortise as the mortise was not intact. Fracture was somewhat displaced. Treatment options, both operative and nonoperative and continued external fixation were discussed at length. After thorough discussion, the patient wished to proceed with internal fixation for fracture and syndesmosis. The risks of surgery explained include but not be limited to infection, stiffness, continued pain, chance that she will develop arthritis, regardless of treatment, given the severity of her injury, chance that she could have a permanent neurologic injury, leaving her with permanent loss of use of function and permanent pain in the leg, chance that she could have painful hardware, which may need to be removed, chance that she could develop a blood clot that could spread from her legs to her lungs and even cause and this can occur despite prophylaxis against deep venous thrombosis. After thorough discussion, the patient wished to proceed with surgery. She had identified her left leg as the operative site, which I signed, and she agrees to proceed with the planned procedure. Today, she is an external fixator. The skin looked excellent. Condition of pin sites is clean. She has no calf tenderness, and neurovascular examination is intact with good pulses and no neurologic deficits. DESCRIPTION OF PROCEDURE: After administration of a regional anesthetic in the preoperative holding area, the patient was brought into the operating room where LMA general anesthetic was administered by the anesthesiologist. Fracture was then visualized using the fluoroscopic image intensifier. At attempt at manipulating the fracture with the external fixator was unsuccessful to reduce the mortise. External fixator was removed. The leg was then meticulously prepped with Povidine scrub brushes. This was then cleaned with sterile water and then after sterile water was applied, the leg was then dried with sterile towels. Alcohol was then applied and then after the alcohol dried, 1-step prep was then used. The leg had sterile prepl, sterile draping and fracture was then reduced manually with as was the syndesmosis using a large fracture reduction clamp. A 2-cm incision at the proximal end of the fibula and second 2 cm incision where our the tip of the plate would end. Subperiosteal dissection to the distal incision was made trying to keep the soft tissues stripping down to the minimum, given the patient's age and severity of fracture. The fracture was then reduced percutaneously through 2 additional stab incisions, which were later then used for syndesmotic TightRope. The precontoured lateral fibula plate was then slid into position, secured proximally with 3 cortical screws and distally being held provisionally with K-wire. Two syndesmotic Tight Ropes were then placed, one through the oblique hole, which had good purchase, but the button pulled the obliquity of the hole; second, which stayed through the plate, restoring the mortise to its anatomic position. The plate was secured distally with a single cancellous screw. The medial malleolus had remained nondisplaced throughout the procedure. Stressing gently of the mortise revealed excellent stability of the patient's syndesmosis. The wounds were then irrigated using copious amounts of antibiotic normal saline solution. The deeper subcutaneous tissues were closed undyed 2-0 Vicryl sutures. The skin edges were reapproximated with 3-0 nylon. The wounds, including the external fixator pin sites, were cleaned with small curette, aggressive irrigation and then bacitracin was placed and Adaptic was then placed overall the wounds, 4 x 4 gauze and then held in place with sterile Webril. A well-padded short leg splint was applied with the ankle in neutral position, which was held in place with Jensen wrap. The patient was then awoken and transported to the recovery room in stable condition, having tolerated the procedure without incident. Postoperatively, the patient is going to continue to be nonweightbearing for an additional 2 months while the syndesmosis and fracture continue to heal. Will see her back in a week, take a look at the wound and then in 2 weeks until we see evidence of wound healing, will then remove the sutures. DVT prophylaxis with early ambulation, however, nonweightbearing. She is going to be on 81 mg of aspirin twice daily. AARON DUVAL M.D. [id number]
--- NOTE | 2016-12-22 09:36 | PATH ---
Surgical Pathology Report Patient Name: MENA EDWARDS Med. Rec. #: [id number] /Age/Gender: 1940 (Age: 76) / F Account: [id number] Location: [facility] AMBUL[facility] Taken: 12/20/2016 Received: 12/21/2016 Reported: 12/22/2016 Physicians: Regla Faith M.D. Specimen(s) Received HARDWARE LEFT ANKLE Clinical History Bimalleolar ankle and syndesmosis disruption Final Diagnosis ORTHOPEDIC HARDWARE, LEFT ANKLE, REMOVAL: ORTHOPEDIC HARDWARE (GROSS ONLY). Electronically Signed Dev Rios M.D. Gross Description Received fresh, labeled "left ankle external fixation hardware," are 5 yellow and adair metallic rods ranging from 15-40 cm in length. Also received within the same container are 7 adair, yellow and green metallic portions of hardware. No soft tissue is present. No sections are submitted, gross only. /12/21/2016 saudi12/21/2016
== END 2016-12-20 18:29 ==
LOC: FASU 11:33
PROVIDERS: ATTEND Orthopaedic Surgery
PROC: 0SSG0ZZ Reposition Left Ankle Joint, Open Approach (ICD-10-PCS; 2016-12-20)
PROC: 0SPGX5Z Removal of External Fixation Device from Left Ankle Joint, External Approach (ICD-10-PCS; 2016-12-20)
PROC: 0SSG04Z Reposition Left Ankle Joint with Internal Fixation Device, Open Approach (ICD-10-PCS; principal; 2016-12-20 13:17)
DX: S82.842A Displaced bimalleolar fracture of left lower leg, initial encounter for closed fracture (principal); S93.432A Sprain of tibiofibular ligament of left ankle, initial encounter; X58.XXXA Exposure to other specified factors, initial encounter; Y93.9 Activity, unspecified; Y92.9 Unspecified place or not applicable
CPT/HCPCS: 73610-TC-LT; 76001-TC; 88300-TC; 94760

== ENCOUNTER 2019-09-15 11:33 | Emergency (ER) | payer OTHER ==
[2019-09-15 11:46] VITALS: TEMP 97.8; BMI 24.6
[2019-09-15] MEDS ORDERED: ACETAMINOPHEN 325 MG TABLET (FP) PO ONE (12:28)
[2019-09-15] MEDS ORDERED: LIDOCAINE 5% TOPICAL PATCH TP ONE (12:28)
[2019-09-15] MEDS ORDERED: IBUPROFEN 600 MG TABLET (FP) PO ONE ×2 (12:42→13:20)
--- NOTE | 2019-09-15 12:45 | PDOC ---
History of Present Illness - General Chief Complaint: Pain, Acute Stated Complaint: NECK PAIN Time Seen by Provider: 09/15/19 12:11 History Source: Patient Exam Limitations: No Limitations - History of Present Illness Initial Comments: Pt is an 79 yo F, with PMH of HTN and HLD (on statin and ASA), who is presenting with complaints of paraspinal neck pain x5 days. Pt states the pain started on the R-side of her neck when she woke up in the morning, but the pain is increasing and is now present on the L side of her neck. Pts last dose of tylenol at yesterday, which has been providing minimal improvement. Pt has urinary incontinence at baseline, and uses a diaper, with no new changes. Pt denies any fevers/chills, headache, vision changes, syncope, chest pain, palpitations, SOB, nausea/vomiting, abdominal pain, urinary symptoms, diarrhea/ constipation, extremity weakness or parasthesia, or leg swelling. Allergies: NKDA Social: Pt denies any cigarette, alcohol, or drug use. Pt denies any recent travel or sick contacts. Surgical: L ankle fracture repair Family: no relevant history. 09/15/19 12:43 09/15/19 13:22 Past History - Travel Traveled outside of the country in the last 30 days: No Close contact w/someone who was outside of country & ill: No - Past Medical History Allergies/Adverse Reactions: Allergies Allergy/AdvReac Type Severity Reaction Status Date / Time No Known Allergies Allergy Verified 09/15/19 11:36 Home Medications: Ambulatory Orders Losartan Potassium 100 mg PO DAILY MDD 100mg 11/29/16 Duloxetine HCl [Cymbalta -] 30 mg PO BID capsule. 12/02/16 Aspirin [ASA -] 81 mg PO BID #0 12/20/16 Nicotine Patch [Nicoderm Patch -] 1 patch TD DAILY 12/20/16 Lidocaine 5% Patch [Lidoderm -] 1 patch TP DAILY #7 patch 09/15/19 Anemia: No Asthma: No Cancer: No Cardiac Disorders: No CVA: No COPD: No CHF: No Dementia: No Diabetes: No GI Disorders: No Disorders: No HTN: Yes Hypercholesterolemia: No Liver Disease: No Seizures: No Thyroid Disease: No - Surgical History Abdominal Surgery: No Appendectomy: No Cardiac Surgery: No Cholecystectomy: Yes Lung Surgery: No Neurologic Surgery: No Orthopedic Surgery: Yes - Immunization History Immunization Up to Date: Yes - Psycho Social/Smoking Cessation Hx Smoking History: Never smoked Have you smoked in the past 12 months: No Number of Cigarettes Smoked Daily: 20 If you are a former smoker, when did you quit?: 11/28/16 Information on smoking cessation initiated: No 'Breaking Loose' booklet given: 12/13/16 Hx Alcohol Use: No Drug/Substance Use Hx: No Substance Use Type: None Hx Substance Use Treatment: No Trauma Specific PMHX - Complaint Specific PMHX Arthritis: No Back Injury: No Neck Injury: No Hx Sacro Iliac Joint Dysfunction: No Review of Systems - Review of Systems Able to Perform ROS?: Yes Is the patient limited Sammarinese proficient: No Constitutional: Yes: Weight Stable. No: Chills, Diaphoresis, Fever, Loss of Appetite, Malaise, Weakness HEENTM: No: Recent change in vision, Nose Congestion, Throat Pain, Throat Swelling, Difficulty Swallowing Respiratory: No: Cough, Orthopnea, Shortness of Breath Cardiac (ROS): No: Chest Pain, Edema, Irregular Heart Rate, Lightheadedness, Palpitations, Syncope, Chest Tightness ABD/GI: No: Constipated, Diarrhea, Nausea, Poor Appetite, Poor Fluid Intake, Vomiting : No: Burning, Dysuria, Frequency, Incontinence (no changes from baseline), Pain, Urgency Musculoskeletal: Yes: Neck Pain. No: Back Pain, Joint Pain, Joint Swelling, Muscle Weakness Integumentary: No: Rash Neurological: No: Headache, Numbness, Paresthesia, Tingling, Weakness, Unsteady Gait, Ataxia, Dizziness Psychiatric: No: Sleep Pattern Change, Change in Appetite Endocrine: No: Increased Thirst, Increased Urine, Change in Weight Hematologic/Lymphatic: No: Anemia, Blood Clots, Easy Bleeding, Easy Bruising All Other Systems: Reviewed and Negative *Physical Exam - Vital Signs Last Vital Signs Temp Pulse Resp BP Pulse Ox 97.8 F 101 H 16 116/75 100 09/15/19 11:36 09/15/19 11:36 09/15/19 11:36 09/15/19 11:36 09/15/19 11:36 - Physical Exam Vitals stable, pt afebrile. Pt appears uncomfortable, holding the back of her neck. Normal body habitus. Pt alert and oriented x3. sofa inspector generally intact, muscular strength and sensation intact in all extremities. Cerebellar exam WNL. +Reproducible paraspinal TTP b/l. No midline spinal tenderness, step-offs, or crepitus. Head normocephalic, atraumatic. Eyes PERRLA, EOMI. Oropharynx without erythema or exudates, no LAD b/l. No nasal congestion. Hearing intact. Clear heart sounds, S1/S2, no JVD, b/l pedal edema, or heart murmur. Clear lung sounds, no respiratory distress, wheezes, crackles, or accessory muscle use. No abdominal or CVA tenderness to palpation, no rebound, no guarding. Abdomen soft, non-distended, and with normoactive bowel sounds. Skin without jaundice or rash. 09/15/19 13:26 ED Treatment Course - RADIOLOGY Radiology Studies Ordered: Category Date Time Status SPINE-CERVICAL (2-3VIEWS) [RAD] Stat Radiology 09/15/19 12:28 Ordered Medical Decision Making - Medical Decision Making Pt was seen at bedside, also will be seen by attending Dr. Nieto. Pt presenting with b/l paraspinal neck pain when she awoke from sleep. Denies trauma or recent falls. Will evaluate with cervical spine x-ray for fracture and will reassess after pain control. Provided 650 PO tylenol, 600 PO motrin, lidocaine patch, warm compress for improvement of neck pain. Will continue to reassess pt and monitor for symptomatic improvement. 09/15/19 13:27 X-ray shows arthritis in wedging, no acute fracture noted. Pts pain improved after interventions, will send additional lidocaine patches to pts pharmacy. Pt safe for d/c to home in an ambulance (pt needs her walker for ambulation); strict return precautions provided with pt understanding. 09/15/19 14:10 Discharge - Discharge Information Problems reviewed: Yes Clinical Impression/Diagnosis: Neck pain Condition: Improved Disposition: HOME - Admission No - Follow up/Referral Referrals: Ulises Paulino MD [Staff Physician] - - Patient Discharge Instructions Patient Printed Discharge Instructions: DI for Neck Pain Additional Instructions: You were seen in the ER today for neck pain. The results of your imaging today showed arthritis, but no fractures. Please follow-up with your primary care doctor within 1-2 days to discuss your visit and make sure your symptoms have improved. Please return to the ER if you have any worsening pain, development of fevers or chills, loss of consciousness, inability to tolerate food or fluids , or any other concerns. I have sent medications to your pharmacy. Please take these medications as prescribed. - Post Discharge Activity
--- NOTE | 2019-09-15 12:57 | PDOC ---
Attending Attestation - Resident Resident Name: JosephDevora - ED Attending Attestation I have performed the following: I have examined & evaluated the patient, The case was reviewed & discussed with the resident, I agree w/resident's findings & plan, Exceptions are as noted - HPI HPI: 09/15/19 12:53 79y F hx of htn, hl presents with 3 days of gradual onset, atraumatic neck pain starting after she woke up. Patient states that originally started off in the right neck and has gradually spread to the left neck with resolution of her right neck pain. Patient states that the pain is primarily at the base of the neck/shoulder and it is worse when she is turning her head or moving her head. She denies any associated numbness, tingling, weakness, fever, chills, vision changes, dizziness. There is no recent falls or injuries patient denies any other symptoms including chest pain, shortness of breath, palpitations, urinary or bowel incontinence. Physicial exam: Head: atraumatic ENT: Mild reproducible tenderness in the soft tissues including trapezius, posterior strap next muscles. No focal midline tenderness. Neuro: Diabetes Clinical Manager strength symmetric, sensation symmetric bilaterally in upper and lower extremities, Suspect neck strain No focal neurologic symptoms to suggest dissection or signs of infection We will give the patient NSAIDs, Flexeril as needed Will reassess 09/15/19 13:10
[2019-09-15] MEDS ORDERED: ACETAMINOPHEN 325 MG TABLET (FP) ONE (13:20)
[2019-09-15] MEDS ORDERED: LIDOCAINE 5% TOPICAL PATCH ONE (13:20)
[2019-09-15 18:08] VITALS: BP 113/73; PULSE 92
[2019-09-15] MEDS ORDERED: LIDOCAINE PATCH REMOVAL MC SCH (22:00)
== END 2019-09-15 14:53 | disposition home or self-care (01) ==
LOC: JER 11:33
DX: M54.2 Cervicalgia (principal); I10 Essential (primary) hypertension; E78.5 Hyperlipidemia, unspecified; Z79.82 Long term (current) use of aspirin
CPT/HCPCS: 72040-TC; 99281-25